=== PATIENT | male | born 1950 | race Caucasian/White ===

== ENCOUNTER 2024-05-08 06:53 | Day surgery (SDC) | payer MEDICARE ==
[2024-05-03 14:23] VITALS: BMI 27.6
[~2024-05-08 06:53] MED LIST: LIDOCAINE 1% (10MG/ML) FOR IV START INTRADERMA PRN
[2024-05-08 07:24] VITALS: TEMP 96.9
[2024-05-08] MEDS: LACTATED RINGERS 1,000 ML IV SCH (07:33)
[2024-05-08] MEDS: IV FLUID CONTINUATION 1,000 ML IV ONE (07:34)
[2024-05-08] MEDS ORDERED: LIDOCAINE 1% INJ 10MG/ML (20 ML MDV) ONE (09:01)
[2024-05-08] MEDS ORDERED: PROPOFOL 10 MG/ML 20 ML VIAL IV ONE (09:01)
--- NOTE | 2024-05-08 09:09 | P.PCN ---
Date of Procedure: 05/08/24 Procedure(s) Performed: BRIEF HISTORY: Patient is a 73-year-old, pleasant, white male scheduled for laparoscopy as a part evaluation of iron deficiency anemia and l screening for esophageal varices. He was diagnosed with liver cirrhosis 10 years ago. He was also recently diagnosed with iron deficiency anemia. PROCEDURE PERFORMED: Esophagogastroduodenoscopy with biopsy. PREOPERATIVE DIAGNOSIS: Iron deficiency anemia History of liver cirrhosis/screening for esophageal varices. IV sedation per anesthesia. PROCEDURE: After informed consent was obtained, the patient was brought into the endoscopy unit. IV sedation was administered by Anesthesia under continuous monitoring. Initially the Olympus GIF-140 video endoscope was inserted into the mouth. Esophagus intubated without any difficulty. It was gradually advanced into the stomach and duodenum and carefully examined. The bulb and the second part of the duodenum appeared normal. Biopsies were done from the duodenum to evaluate for celiac disease the scope at this time was withdrawn to the stomach, adequately insufflated with air, and upon careful examination, mucosa of the antrum, gastritis. Because of the body, cardia and the fundus appeared normal. Gastric varices identified. The scope was then withdrawn into the esophagus. T he GE junction was located at 39 cm from the incisors. There were large mid and distal esophageal varices identified with no red chandni mckeon. The rest of the esophagus appeared normal. There were no erosions or ulcerations seen and the patient tolerated the procedure well. IMPRESSION: 1. Large mid and distal esophageal varices 2. Minimal gastritis. RECOMMENDATIONS: The findings of this examination were discussed with the patient as well as his family.. He was advised to follow with the biopsy results. Follow-up in the office in 2 to 3 weeks. He will be started on nonselective beta-blockers with propranolol 10 mg 3 times daily for primary primary prevention of esophageal variceal bleeding because of presence of large esophageal varices.
[2024-05-08 09:15] VITALS: RESP 16
[2024-05-08 09:41] VITALS: BP 124/72; PULSE 56
== END 2024-05-08 09:59 | disposition home or self-care (01) ==
LOC: ORWHC2ENDO 06:53
PROVIDERS: ATTEND Internal Medicine Gastroenterology
DX: K29.70 Gastritis, unspecified, without bleeding (principal); K29.80 Duodenitis without bleeding; K74.60 Unspecified cirrhosis of liver; I85.10 Secondary esophageal varices without bleeding; D50.9 Iron deficiency anemia, unspecified; E78.5 Hyperlipidemia, unspecified; Z80.0 Family history of malignant neoplasm of digestive organs; Z79.899 Other long term (current) drug therapy
CPT/HCPCS: 88305; 43239; J2001; J2704

== ENCOUNTER 2024-11-07 09:31 | Day surgery (SDC) | payer MEDICARE, OTHER ==
[~2024-11-07 09:31] MED LIST changes: +LACTATED RINGERS 1,000 ML IV SCH; +ONDANSETRON 4 MG/2 ML VIAL IVP PRN
[2024-11-07 10:07] VITALS: TEMP 96.8
[2024-11-07] MEDS: SODIUM CHLORIDE 0.9% 500 ML 500 ML IV ONE (10:16)
[2024-11-07] MEDS ORDERED: LIDOCAINE 2% (PF) 20 MG/ML 5 ML VIAL ONE (10:55)
[2024-11-07] MEDS ORDERED: PROPOFOL 10 MG/ML 20 ML VIAL IV ONE (10:55)
--- NOTE | 2024-11-07 11:11 | P.PCN ---
Date of Procedure: 11/07/24 Procedure(s) Performed: BRIEF HISTORY: Patient is a 74-year-old, pleasant, white male scheduled upper endoscopy as a part of follow-up of esophageal varices. He had a screening upper endoscopy in 6 months ago and was noted to have large mid and distal esophagus consistent for an upper endoscopy with variceal ligation as a part of prevention of variceal bleed. PROCEDURE PERFORMED: Esophagogastroduodenoscopy variceal ligation. PREOPERATIVE DIAGNOSIS: Follow-up large esophageal varices. IV sedation per anesthesia. PROCEDURE: After informed consent was obtained, the patient was brought into the endoscopy unit. IV sedation was administered by Anesthesia under continuous monitoring. Initially the Olympus GIF-140 video endoscope was inserted into the mouth. Esophagus intubated without any difficulty. It was gradually advanced into the stomach and duodenum and carefully examined. The bulb and the second part of the duodenum appeared normal. The scope at this time was withdrawn to the stomach, adequately insufflated with air, and upon careful examination, mucosa of the antrum, body, cardia and the fundus had changes consistent with mild to moderate portal hypertensive gastropathy. No gastric varices seen. The scope was then withdrawn into the esophagus. The GE junction was located at 39 cm from the incisors. There were large mid and distal esophageal varices identified. At this time the scope was removed and the esophageal variceal ligation equipment t was introduced onto the tip of the scope and the esophagus were intubated without any difficulty and was gradually Reveles into the stomach and duodenum and carefully examined. Using suction total of 5 bands were deployed in a spiral fashion starting from the distal esophageal varices to the mid esophageal varices. The rest of the esophagus appeared normal and the patient tolerated the procedure well. IMPRESSION: 1. Large distal esophageal varices status post variceal ligation as described above. 2. Mild to moderate portal hypertensive gastropathy. RECOMMENDATIONS: The findings of this examination were discussed with the patient as well as his family. He was advised to follow-up in the office in 4 weeks. Will plan on repeat upper endoscopy with variceal ligation in 4 to 6 weeks.. .
[2024-11-07 11:17] VITALS: PULSE 57
[2024-11-07 11:36] VITALS: BP 134/75; RESP 16
== END 2024-11-07 11:57 | disposition home or self-care (01) ==
LOC: ORWHC2ENDO 09:31
PROVIDERS: ATTEND Internal Medicine Gastroenterology
DX: I85.00 Esophageal varices without bleeding (principal); K31.89 Other diseases of stomach and duodenum; K76.6 Portal hypertension; K76.9 Liver disease, unspecified; Z79.899 Other long term (current) drug therapy; Z85.46 Personal history of malignant neoplasm of prostate
CPT/HCPCS: 43255; J2704; J2003

== ENCOUNTER 2025-01-30 10:00 | Day surgery (SDC) | payer MEDICARE, OTHER ==
[2025-01-25 15:30] VITALS: BMI 27.8
[~2025-01-30 10:00] MED LIST changes: -LIDOCAINE 1% (10MG/ML) FOR IV START INTRADERMA PRN; -ONDANSETRON 4 MG/2 ML VIAL IVP PRN
[2025-01-30 10:32] VITALS: TEMP 96.8
[2025-01-30] MEDS: IV FLUID CONTINUATION 1,000 ML IV ONE (10:46)
[2025-01-30] MEDS ORDERED: LIDOCAINE HCL/PF 20 MG/ML 10 ML AMP ONE (11:01)
[2025-01-30] MEDS ORDERED: PROPOFOL 10 MG/ML 20 ML VIAL IV ONE (11:01)
--- NOTE | 2025-01-30 11:15 | P.PCN ---
Date of Procedure: 01/30/25 Procedure(s) Performed: BRIEF HISTORY: Patient is a 74-year-old, pleasant, white male with history of cirrhosis of the liver and esophageal varices scheduled for an upper endoscopy for variceal ligation today. Last EGD with variceal ligation was in October 2024.. PROCEDURE PERFORMED: Esophagogastroduodenoscopy with variceal ligation.. PREOPERATIVE DIAGNOSIS: Follow-up esophageal varices. IV sedation per anesthesia. PROCEDURE: After informed consent was obtained, the patient was brought into the endoscopy unit. IV sedation was administered by Anesthesia under continuous monitoring. Initially the Olympus GIF-140 video endoscope was inserted into the mouth. Esophagus intubated without any difficulty. It was gradually advanced into the stomach and duodenum and carefully examined. The bulb and the second part of the duodenum appeared normal. The scope at this time was withdrawn to the stomach, adequately insufflated with air, and upon careful examination, mucosa of the antrum, body, cardia and the fundus had changes consistent with mild to moderate portal hypertensive gastropathy. No gastric varices seen.. The scope was then withdrawn into the esophagus. The GE junction was located at 39 cm from the incisors. There were large mid and distal esophageal varices identified. The scope at this time was removed and the esophageal variceal ligation equipment was introduced onto the tip of the scope and esophagus intubated without any difficulty and was gradually advanced into the distal esophagus. Variceal ligation was performed using suction and a total of 6 bands were deployed in the mid and distal esophageal varices. The rest of the esophagus appeared normal. There were no erosions or ulcerations seen and the patient tolerated the procedure well. IMPRESSION: 1. Large mid and distal esophageal varices status post variceal ligation as described above. 2. Moderate portal hypertensive gastric. RECOMMENDATIONS: The findings of this examination were discussed with the patient as well as his family. He will be on a soft diet today. Will plan a repeat upper endoscopy in 3 months..
[2025-01-30 11:58] VITALS: BP 136/61; PULSE 51; RESP 18
== END 2025-01-30 12:10 | disposition home or self-care (01) ==
LOC: ORWHC2ENDO 10:00
PROVIDERS: ATTEND Internal Medicine Gastroenterology
DX: I85.00 Esophageal varices without bleeding (principal); K76.6 Portal hypertension
CPT/HCPCS: 43244; J2003; J2704